=== PATIENT | female | born 1935 | race Caucasian/White ===

== ENCOUNTER 2017-06-02 22:46 | Inpatient (IN) | payer OTHER ==
[~2017-06-02] VITALS: Ht 157.5 cm; Wt 61.0 kg
[~2017-06-02 22:46] MED LIST: ACET500 PO; Amlodipine Bes2.5 MG PO; DOK100 MG PO; DONE10 PO; LIDO5TP TOP; METO25 PO; MIRT15 PO; NAPR220 PO; Norco 5-325 Ta1 EACH PO; PANT40 PO; Toprol Xl25 MG PO
[2017-06-02 23:15] LABS: Calcium, Ionized (POC) 1.09 mmol/L (1.10-1.46); Chloride (POC) 109 mmol/L (98-108); Creatinine (POC) 1.1 mg/dL (0.6-1.0); Glucose (ISTAT POC) 185 mg/dL (70-99); Hemoglobin (POC) 7.1 g/dL (12.0-16.0); Potassium (POC) 3.5 mmol/L (3.5-5.5); Sodium (POC) 138 mmol/L (135-148); Total CO2 (POC) 15 mmol/L (21-32)
[2017-06-02 23:17] LABS: BASOPHILS ABSOLUTE AUTO 0.02 K/mm3 (0.00-0.23); BASOPHILS PERCENT AUTO 0 % (0-2); EOSINOPHILS ABSOLUTE AUTO 0.01 K/mm3 (0.00-0.68); EOSINOPHILS PERCENT AUTO 0 % (0-6); Hematocrit 21.1 % (33.0-51.0); IMMATURE GRAN ABSOLUTE AUTO 0.24 K/mm3 (0.00-0.10); IMMATURE GRAN PERCENT AUTO 2 % (0-1); LYMPHOCYTES ABSOLUTE AUTO 0.95 K/mm3 (0.84-5.20); LYMPHOCYTES PERCENT AUTO 6 % (21-46); MONOCYTES ABSOLUTE AUTO 1.36 K/mm3 (0.16-1.47); MONOCYTES PERCENT AUTO 9 % (4-13); Mean Corpuscular HGB 17.3 pg (26.0-34.0); Mean Corpuscular Volume 64 fL (80-100); Mean Platelet Volume 8.4 fL (9.1-12.4); NEUTROPHILS ABSOLUTE AUTO 13.49 K/mm3 (1.96-9.15); NEUTROPHILS PERCENT AUTO 84 % (41-73); NRBC ABSOLUTE 0.02 K/mm3 (0.00-0.02); NRBC Auto 0.1 /100 WBC (0.0-0.2); Platelet Count 531 K/mm3 (150-400); RDW Coefficient Variation 23.4 % (11.7-14.2); RDW Standard Deviation 51.8 fL (35.1-46.3); Red Blood Cell Count 3.29 M/mm3 (3.80-5.20); White Blood Cell Count 16.07 K/mm3 (4.00-11.30)
[2017-06-02 23:19] LABS: Hemoglobin 5.7 g/dL (11.5-16.0)
[2017-06-02 23:42] LABS: Alanine Aminotransfer (ALT/SGP 9 U/L (12-78); Albumin/Globulin Ratio 0.9 (0.8-1.8); Alk Phos 63 U/L (50-136); Anion Gap 16 mmol/L (6-16); Aspartate Aminotrans (AST/SGOT 11 U/L (12-37); Bilirubin, Total 0.3 mg/dL (0.1-1.0); Blood Urea Nitrogen 38 mg/dL (8-24); Bun/Creatinine Ratio 36.9 (12.0-20.0); CO2, Blood 15 mmol/L (21-32); Calcium, Blood 8.4 mg/dL (8.5-10.1); Chloride, Blood 109 mmol/L (98-108); Creatinine, Blood 1.03 mg/dL (0.40-1.00); Globulin, Blood 3.5 g/dL (2.2-4.0); Glomerular Filtration Rate 54 (60-); Glucose, Blood 185 mg/dL (70-99); Potassium, Blood 3.5 mmol/L (3.5-5.5); Sodium, Blood 140 mmol/L (136-145); Total Protein, Blood 6.5 g/dL (6.4-8.2); Troponin I <0.015 ng/mL (0.000-0.040)
[2017-06-03 00:14] LABS: Source, Urine Clean Catch
[2017-06-03 00:19] LABS: Bilirubin, Urine Neg (Neg); Blood, Urine 1+ (Neg); Glucose Qualitative, Urine Neg (Neg); Ketones, Urine Neg (Neg); Leukocyte Esterase, Urine Neg (Neg); Nitrite, Urine Neg (Neg); Protein, Urine Neg (Neg); Specific Gravity, Urine 1.015 (1.003-1.022); Urobilinogen, Urine NORM (Normal)
[2017-06-03 00:30] LABS: Appearance, Urine Clear (Clear); Color, Urine Yellow (P-Yellow)
[2017-06-03 00:32] LABS: Bacteria Mod /hpf; Hyaline Casts 0-2 /lpf (0-2); Mucus Light (0-Heavy); Red Blood Cells, Urine 0-2 /hpf (0-2); Squamous Epithelial Cells Rare /hpf (Few); White Blood Cells, Urine 0-2 /hpf (0-5)
[2017-06-03 00:36] LABS: Hemoglobin 5.3 g/dL (11.5-16.0); IMMATURE RETIC FRACTION 42.7 % (2.3-16.0); RETIC HGB EQUIVALENT 18.5 pg (28.20-36.60); RETICULOCYTE COUNT PERCENT 3.22 % (0.50-2.50)
[2017-06-03 00:42] LABS: Percent Saturation 2.4 % (15.0-50.0)
[2017-06-03 06:15] LABS: BASOPHILS ABSOLUTE AUTO 0.05 K/mm3 (0.00-0.23); BASOPHILS PERCENT AUTO 0 % (0-2); EOSINOPHILS ABSOLUTE AUTO 0.04 K/mm3 (0.00-0.68); EOSINOPHILS PERCENT AUTO 0 % (0-6); Hematocrit 28.5 % (33.0-51.0); Hemoglobin 8.6 g/dL (11.5-16.0); IMMATURE GRAN ABSOLUTE AUTO 0.18 K/mm3 (0.00-0.10); IMMATURE GRAN PERCENT AUTO 1 % (0-1); LYMPHOCYTES ABSOLUTE AUTO 1.44 K/mm3 (0.84-5.20); LYMPHOCYTES PERCENT AUTO 10 % (21-46); MONOCYTES ABSOLUTE AUTO 1.88 K/mm3 (0.16-1.47); MONOCYTES PERCENT AUTO 13 % (4-13); Mean Corpuscular HGB 21.4 pg (26.0-34.0); Mean Corpuscular HGB Conc 30.2 g/dL (31.5-36.5); Mean Platelet Volume 8.4 fL (9.1-12.4); NEUTROPHILS ABSOLUTE AUTO 11.08 K/mm3 (1.96-9.15); NEUTROPHILS PERCENT AUTO 76 % (41-73); NRBC ABSOLUTE 0.05 K/mm3 (0.00-0.02); NRBC Auto 0.3 /100 WBC (0.0-0.2); Platelet Count 381 K/mm3 (150-400); RDW Coefficient Variation 26.5 % (11.7-14.2); Red Blood Cell Count 4.02 M/mm3 (3.80-5.20); White Blood Cell Count 14.67 K/mm3 (4.00-11.30)
[2017-06-03 06:18] LABS: Mean Corpuscular Volume 71 fL (80-100)
[2017-06-03 06:38] LABS: Alanine Aminotransfer (ALT/SGP 10 U/L (12-78); Albumin, Blood 2.8 g/dL (3.4-5.0); Albumin/Globulin Ratio 0.8 (0.8-1.8); Alk Phos 56 U/L (50-136); Anion Gap 10 mmol/L (6-16); Aspartate Aminotrans (AST/SGOT 13 U/L (12-37); Bilirubin, Total 0.6 mg/dL (0.1-1.0); Blood Urea Nitrogen 32 mg/dL (8-24); Bun/Creatinine Ratio 34.6 (12.0-20.0); CO2, Blood 19 mmol/L (21-32); Calcium, Blood 8.2 mg/dL (8.5-10.1); Chloride, Blood 113 mmol/L (98-108); Creatinine, Blood 0.92 mg/dL (0.40-1.00); Globulin, Blood 3.4 g/dL (2.2-4.0); Glomerular Filtration Rate >60 (60-); Glucose, Blood 93 mg/dL (70-99); Potassium, Blood 3.9 mmol/L (3.5-5.5); Sodium, Blood 142 mmol/L (136-145); Total Protein, Blood 6.2 g/dL (6.4-8.2)
[2017-06-03 14:17] LABS: Hematocrit 26.6 % (33.0-51.0); Hemoglobin 8.2 g/dL (11.5-16.0)
[2017-06-04 00:56] LABS: BASOPHILS ABSOLUTE AUTO 0.03 K/mm3 (0.00-0.23); BASOPHILS PERCENT AUTO 0 % (0-2); EOSINOPHILS ABSOLUTE AUTO 0.13 K/mm3 (0.00-0.68); EOSINOPHILS PERCENT AUTO 1 % (0-6); Hematocrit 26.4 % (33.0-51.0); IMMATURE GRAN ABSOLUTE AUTO 0.13 K/mm3 (0.00-0.10); IMMATURE GRAN PERCENT AUTO 1 % (0-1); LYMPHOCYTES ABSOLUTE AUTO 1.15 K/mm3 (0.84-5.20); LYMPHOCYTES PERCENT AUTO 11 % (21-46); MONOCYTES ABSOLUTE AUTO 1.35 K/mm3 (0.16-1.47); MONOCYTES PERCENT AUTO 13 % (4-13); Mean Corpuscular HGB 21.5 pg (26.0-34.0); Mean Corpuscular HGB Conc 30.3 g/dL (31.5-36.5); Mean Corpuscular Volume 71 fL (80-100); NEUTROPHILS ABSOLUTE AUTO 7.53 K/mm3 (1.96-9.15); NEUTROPHILS PERCENT AUTO 73 % (41-73); NRBC ABSOLUTE 0.02 K/mm3 (0.00-0.02); NRBC Auto 0.2 /100 WBC (0.0-0.2); Platelet Count 332 K/mm3 (150-400); RDW Coefficient Variation 26.3 % (11.7-14.2); Red Blood Cell Count 3.72 M/mm3 (3.80-5.20); White Blood Cell Count 10.32 K/mm3 (4.00-11.30)
[2017-06-04 01:14] LABS: Albumin, Blood 2.6 g/dL (3.4-5.0); Anion Gap 9 mmol/L (6-16); Blood Urea Nitrogen 15 mg/dL (8-24); Bun/Creatinine Ratio 20.3 (12.0-20.0); CO2, Blood 20 mmol/L (21-32); Calcium, Blood 7.9 mg/dL (8.5-10.1); Chloride, Blood 111 mmol/L (98-108); Creatinine, Blood 0.74 mg/dL (0.40-1.00); Glomerular Filtration Rate >60 (60-); Glucose, Blood 87 mg/dL (70-99); Phosphorus, Blood 2.5 mg/dL (2.5-4.9); Potassium, Blood 3.7 mmol/L (3.5-5.5); Sodium, Blood 140 mmol/L (136-145)
[2017-06-05 05:10] LABS: BASOPHILS ABSOLUTE AUTO 0.02 K/mm3 (0.00-0.23); BASOPHILS PERCENT AUTO 0 % (0-2); EOSINOPHILS ABSOLUTE AUTO 0.18 K/mm3 (0.00-0.68); EOSINOPHILS PERCENT AUTO 2 % (0-6); Hematocrit 27.5 % (33.0-51.0); IMMATURE GRAN ABSOLUTE AUTO 0.16 K/mm3 (0.00-0.10); IMMATURE GRAN PERCENT AUTO 2 % (0-1); LYMPHOCYTES ABSOLUTE AUTO 1.09 K/mm3 (0.84-5.20); LYMPHOCYTES PERCENT AUTO 11 % (21-46); MONOCYTES ABSOLUTE AUTO 1.18 K/mm3 (0.16-1.47); MONOCYTES PERCENT AUTO 12 % (4-13); Mean Corpuscular HGB 21.5 pg (26.0-34.0); Mean Corpuscular HGB Conc 29.1 g/dL (31.5-36.5); Mean Platelet Volume 8.4 fL (9.1-12.4); NEUTROPHILS ABSOLUTE AUTO 7.22 K/mm3 (1.96-9.15); NEUTROPHILS PERCENT AUTO 73 % (41-73); NRBC ABSOLUTE 0.03 K/mm3 (0.00-0.02); NRBC Auto 0.3 /100 WBC (0.0-0.2); Platelet Count 317 K/mm3 (150-400); RDW Coefficient Variation 27.6 % (11.7-14.2); RDW Standard Deviation 69.5 fL (35.1-46.3); Red Blood Cell Count 3.72 M/mm3 (3.80-5.20); White Blood Cell Count 9.85 K/mm3 (4.00-11.30)
[2017-06-05 05:12] LABS: Mean Corpuscular Volume 74 fL (80-100)
[2017-06-05 05:40] LABS: Albumin, Blood 2.6 g/dL (3.4-5.0); Anion Gap 10 mmol/L (6-16); Blood Urea Nitrogen 11 mg/dL (8-24); Bun/Creatinine Ratio 14.4 (12.0-20.0); CO2, Blood 23 mmol/L (21-32); Chloride, Blood 109 mmol/L (98-108); Creatinine, Blood 0.77 mg/dL (0.40-1.00); Glomerular Filtration Rate >60 (60-); Glucose, Blood 88 mg/dL (70-99); Phosphorus, Blood 2.4 mg/dL (2.5-4.9); Potassium, Blood 3.4 mmol/L (3.5-5.5); Sodium, Blood 142 mmol/L (136-145)
[2017-06-06 05:00] LABS: Hematocrit 27.9 % (33.0-51.0); Hemoglobin 8.1 g/dL (11.5-16.0)
[2017-06-07 05:31] LABS: Hematocrit 30.5 % (33.0-51.0); Hemoglobin 8.9 g/dL (11.5-16.0)
[2017-06-07 06:03] LABS: Albumin, Blood 2.5 g/dL (3.4-5.0); Anion Gap 8 mmol/L (6-16); Blood Urea Nitrogen 9 mg/dL (8-24); Bun/Creatinine Ratio 13.2 (12.0-20.0); CO2, Blood 25 mmol/L (21-32); Calcium, Blood 8.5 mg/dL (8.5-10.1); Chloride, Blood 106 mmol/L (98-108); Creatinine, Blood 0.68 mg/dL (0.40-1.00); Glomerular Filtration Rate >60 (60-); Glucose, Blood 87 mg/dL (70-99); Phosphorus, Blood 3.3 mg/dL (2.5-4.9); Potassium, Blood 3.8 mmol/L (3.5-5.5); Sodium, Blood 139 mmol/L (136-145)
[2017-06-10 05:09] LABS: Hematocrit 31.3 % (33.0-51.0); Hemoglobin 9.3 g/dL (11.5-16.0)
[2017-06-10 05:27] LABS: Anion Gap 9 mmol/L (6-16); Blood Urea Nitrogen 18 mg/dL (8-24); CO2, Blood 23 mmol/L (21-32); Calcium, Blood 8.5 mg/dL (8.5-10.1); Chloride, Blood 107 mmol/L (98-108); Creatinine, Blood 0.75 mg/dL (0.40-1.00); Glomerular Filtration Rate >60 (60-); Glucose, Blood 87 mg/dL (70-99); Potassium, Blood 3.7 mmol/L (3.5-5.5); Sodium, Blood 139 mmol/L (136-145)
[2017-06-11] MEDS ORDERED: ACET325 PO (11:23)
[2017-06-11] MEDS ORDERED: TRAM50 PO (11:24)
[2017-06-11] MEDS ORDERED: LIDO700A20 TOP (11:24)
[2017-06-11] MEDS ORDERED: Ferrous Sulfat325 M2 PO (11:25)
[2017-06-20] MEDS ORDERED: Ultram50 MG PO (19:13)
== END 2017-06-11 13:00 | disposition home or self-care (01) | DRG 811 ==
LOC: ER 22:46 → ICUW 23:58 → MEDS 23:58 → ICUE 23:58 → MEDS 06-03 01:10 → ICUE 06-03 08:40 → MEDS 06-03 20:57
PROVIDERS: Emergency Medicine; Family Medicine; Internal Medicine
PROC: 30233N1 Transfusion of Nonautologous Red Blood Cells into Peripheral Vein, Percutaneous Approach (ICD-10-PCS; principal; 2017-06-02)
DX: D50.9 Iron deficiency anemia, unspecified (principal); J96.01 Acute respiratory failure with hypoxia; G93.40 Encephalopathy, unspecified; F03.90 Unspecified dementia, unspecified severity, without behavioral disturbance, psychotic disturbance, mood disturbance, and anxiety; E78.5 Hyperlipidemia, unspecified; M19.90 Unspecified osteoarthritis, unspecified site; K59.00 Constipation, unspecified; R26.9 Unspecified abnormalities of gait and mobility
CPT/HCPCS: 36415; 36430; 70450; 71046; 71100; 74176; 78452; 80047; 80048; 80053; 80069; 81001; 82607; 82728; 82746; 83540; 83550; 83605; 83690; 84484; 85014; 85018; 85025; 85045; 86850; 86900; 86901; 86923; 87040; 87086; 93005; 93010; 93017; 96361; 96374; 97110; 97116; 97162; 97167; 97530; 99285; A9500; G8978; G8979; G8980; G8987; G8988; G8989; J0280; J0696; J1630; J2405; J2785; J2916; J3010; J7030; J7040; J7060; P9016

== ENCOUNTER 2017-06-13 10:33 | Emergency (ER) | payer OTHER ==
[~2017-06-13] VITALS: Ht 162.6 cm; Wt 59.0 kg
[~2017-06-13 10:33] MED LIST changes: +ACET325 PO; +Ferrous Sulfat325 M2 PO; +LIDO700A20 TOP; +TRAM50 PO
[2017-06-13 11:16] LABS: BASOPHILS ABSOLUTE AUTO 0.04 K/mm3 (0.00-0.23); BASOPHILS PERCENT AUTO 1 % (0-2); EOSINOPHILS ABSOLUTE AUTO 0.21 K/mm3 (0.00-0.68); EOSINOPHILS PERCENT AUTO 4 % (0-6); Hemoglobin 10.8 g/dL (11.5-16.0); IMMATURE GRAN ABSOLUTE AUTO 0.09 K/mm3 (0.00-0.10); IMMATURE GRAN PERCENT AUTO 2 % (0-1); LYMPHOCYTES ABSOLUTE AUTO 1.07 K/mm3 (0.84-5.20); LYMPHOCYTES PERCENT AUTO 18 % (21-46); MONOCYTES ABSOLUTE AUTO 0.65 K/mm3 (0.16-1.47); MONOCYTES PERCENT AUTO 11 % (4-13); Mean Platelet Volume 8.6 fL (9.1-12.4); NEUTROPHILS ABSOLUTE AUTO 3.87 K/mm3 (1.96-9.15); NEUTROPHILS PERCENT AUTO 65 % (41-73); Platelet Count 542 K/mm3 (150-400); White Blood Cell Count 5.93 K/mm3 (4.00-11.30)
[2017-06-13 11:21] LABS: International Normalized Ratio 1.07; Prothrombin Time Results 11.2 Sec (9.7-11.5)
[2017-06-13 11:28] LABS: Alanine Aminotransfer (ALT/SGP 13 U/L (12-78); Albumin, Blood 2.8 g/dL (3.4-5.0); Albumin/Globulin Ratio 0.6 (0.8-1.8); Alk Phos 85 U/L (50-136); Anion Gap 11 mmol/L (6-16); Aspartate Aminotrans (AST/SGOT 16 U/L (12-37); Bilirubin, Total 0.3 mg/dL (0.1-1.0); Blood Urea Nitrogen 12 mg/dL (8-24); Bun/Creatinine Ratio 14.9 (12.0-20.0); CO2, Blood 21 mmol/L (21-32); Calcium, Blood 9.1 mg/dL (8.5-10.1); Chloride, Blood 106 mmol/L (98-108); Creatinine, Blood 0.81 mg/dL (0.40-1.00); Globulin, Blood 4.6 g/dL (2.2-4.0); Glomerular Filtration Rate >60 (60-); Glucose, Blood 95 mg/dL (70-99); Potassium, Blood 3.7 mmol/L (3.5-5.5); Sodium, Blood 138 mmol/L (136-145); Total Protein, Blood 7.4 g/dL (6.4-8.2); Troponin I <0.015 ng/mL (0.000-0.040)
[2017-06-13 11:42] LABS: Mean Corpuscular HGB 23.6 pg (26.0-34.0); Mean Corpuscular HGB Conc 29.1 g/dL (31.5-36.5); Mean Corpuscular Volume 81 fL (80-100); Red Blood Cell Count 4.58 M/mm3 (3.80-5.20)
[2017-06-13 11:59] LABS: Hematocrit 37.1 % (33.0-51.0)
[2017-06-13 12:56] LABS: U Amphetamine Screen Not Detected; U Barbituate Screen Not Detected; U Benzodiazapine Screen Not Detected; U Buprenorphine Screen Not Detected; U Cannabinoids Screen Not Detected; U Cocaine Screen Not Detected; U Methadone Screen Not Detected; U Methamphetamine Screen Not Detected; U Opiates Screen DETECTED; U Oxycodone Screen Not Detected; U Phencyclidine Screen Not Detected; U Propoxyphene Screen Not Detected
[2017-06-13] MEDS ORDERED: Zithromax250 MG PO (13:00)
[2017-06-20] MEDS ORDERED: Ultram50 MG PO (19:13)
== END 2017-06-13 14:50 | disposition home or self-care (01) ==
LOC: ER 10:33
PROVIDERS: Emergency Medicine
DX: R07.9 Chest pain, unspecified (principal); F03.90 Unspecified dementia, unspecified severity, without behavioral disturbance, psychotic disturbance, mood disturbance, and anxiety; I10 Essential (primary) hypertension; Z88.0 Allergy status to penicillin; Z87.891 Personal history of nicotine dependence; Z79.899 Other long term (current) drug therapy
CPT/HCPCS: 36415; 71046; 80053; 83880; 84443; 84484; 85025; 85610; 93005; 93010; 96374; 96375; 99283; J2405; J3010

== ENCOUNTER 2017-07-14 16:45 | Observation (INO) | payer OTHER ==
[~2017-07-14] VITALS: Ht 152.4 cm; Wt 57.8 kg
[~2017-07-14 16:45] MED LIST changes: +Ultram50 MG PO; +Zithromax250 MG PO
[2017-07-14] MEDS ORDERED: ONDA4ODT PO ×2 (17:13)
[2017-07-14 17:30] LABS: BASOPHILS ABSOLUTE AUTO 0.02 K/mm3 (0.00-0.23); BASOPHILS PERCENT AUTO 0 % (0-2); EOSINOPHILS ABSOLUTE AUTO 0.19 K/mm3 (0.00-0.68); EOSINOPHILS PERCENT AUTO 3 % (0-6); Hematocrit 36.3 % (33.0-51.0); Hemoglobin 11.5 g/dL (11.5-16.0); IMMATURE GRAN ABSOLUTE AUTO 0.07 K/mm3 (0.00-0.10); IMMATURE GRAN PERCENT AUTO 1 % (0-1); LYMPHOCYTES PERCENT AUTO 27 % (21-46); MONOCYTES ABSOLUTE AUTO 0.68 K/mm3 (0.16-1.47); MONOCYTES PERCENT AUTO 12 % (4-13); Mean Corpuscular HGB 27.3 pg (26.0-34.0); Mean Corpuscular HGB Conc 31.7 g/dL (31.5-36.5); Mean Corpuscular Volume 86 fL (80-100); Mean Platelet Volume 8.5 fL (9.1-12.4); NEUTROPHILS ABSOLUTE AUTO 3.19 K/mm3 (1.96-9.15); NEUTROPHILS PERCENT AUTO 57 % (41-73); Platelet Count 398 K/mm3 (150-400); RDW Coefficient Variation 30.5 % (11.7-14.2); RDW Standard Deviation 91.4 fL (35.1-46.3); Red Blood Cell Count 4.21 M/mm3 (3.80-5.20); White Blood Cell Count 5.65 K/mm3 (4.00-11.30)
[2017-07-14 17:45] LABS: Alanine Aminotransfer (ALT/SGP 14 U/L (12-78); Albumin/Globulin Ratio 0.9 (0.8-1.8); Alk Phos 89 U/L (50-136); Anion Gap 10 mmol/L (6-16); Aspartate Aminotrans (AST/SGOT 26 U/L (12-37); Bilirubin, Total 0.4 mg/dL (0.1-1.0); Blood Urea Nitrogen 15 mg/dL (8-24); Bun/Creatinine Ratio 23.8 (12.0-20.0); CO2, Blood 21 mmol/L (21-32); Calcium, Blood 8.7 mg/dL (8.5-10.1); Chloride, Blood 110 mmol/L (98-108); Creatinine, Blood 0.63 mg/dL (0.40-1.00); Globulin, Blood 3.4 g/dL (2.2-4.0); Glomerular Filtration Rate >60 (60-); Glucose, Blood 89 mg/dL (70-99); Potassium, Blood 3.6 mmol/L (3.5-5.5); Sodium, Blood 141 mmol/L (136-145); Total Protein, Blood 6.4 g/dL (6.4-8.2); Troponin I 0.037 ng/mL (0.000-0.040)
[2017-07-14 23:33] LABS: Creatine Kinase MB 2.6 ng/mL (0.0-3.6); Troponin I 0.048 ng/mL (0.000-0.040)
[2017-07-15 05:00] LABS: Hematocrit 33.4 % (33.0-51.0); Hemoglobin 10.6 g/dL (11.5-16.0); Mean Corpuscular HGB 27.2 pg (26.0-34.0); Mean Corpuscular HGB Conc 31.7 g/dL (31.5-36.5); Mean Corpuscular Volume 86 fL (80-100); Mean Platelet Volume 8.3 fL (9.1-12.4); Platelet Count 328 K/mm3 (150-400); RDW Coefficient Variation 29.8 % (11.7-14.2)
[2017-07-15 05:22] LABS: Anion Gap 11 mmol/L (6-16); Blood Urea Nitrogen 13 mg/dL (8-24); Bun/Creatinine Ratio 21.4 (12.0-20.0); CO2, Blood 19 mmol/L (21-32); CPK Creatine Kinase 44 U/L (26-193); Chloride, Blood 110 mmol/L (98-108); Creatinine, Blood 0.61 mg/dL (0.40-1.00); Glomerular Filtration Rate >60 (60-); Glucose, Blood 81 mg/dL (70-99); Potassium, Blood 3.3 mmol/L (3.5-5.5); Sodium, Blood 140 mmol/L (136-145)
[2017-07-15 05:23] LABS: Creatine Kinase MB 2.9 ng/mL (0.0-3.6); Creatine Kinase MB Index 6.6 (0.0-4.0); Troponin I 0.041 ng/mL (0.000-0.040)
[2017-07-15 07:16] LABS: Source, Urine Clean Catch
[2017-07-15 07:24] LABS: Bilirubin, Urine Neg (Neg); Blood, Urine 3+ (Neg); Glucose Qualitative, Urine Neg (Neg); Ketones, Urine 2+ (Neg); Leukocyte Esterase, Urine 1+ (Neg); Nitrite, Urine Neg (Neg); Protein, Urine 1+ (Neg); Urobilinogen, Urine NORM (Normal)
[2017-07-15 07:48] LABS: Appearance, Urine Clear (Clear); Color, Urine Yellow (P-Yellow)
[2017-07-15 07:51] LABS: Bacteria Mod /hpf; Squamous Epithelial Cells Few /hpf (Few)
[2017-07-15 09:54] LABS: CHOL/HDL RATIO 5.1; Cholesterol 144 mg/dL (50-200); HDL Cholesterol 28 mg/dL (>39); LDL/HDL RATIO 2.8; Low Density Lipoprotein Chol 78 mg/dL (0-110); Triglycerides 188 mg/dL (30-160); Very Low Density Lipoprot Chol 37 mg/dL (6-32)
[2017-07-16] MEDS ORDERED: ASPI81CH PO ×2 (14:58)
[2017-07-16] MEDS ORDERED: Ferrous Sulfat325 MG PO ×2 (14:59)
[2017-07-16] MEDS ORDERED: DOCU100 PO ×2 (14:59)
[2017-07-16] MEDS ORDERED: METO25 PO ×2 (15:00)
[2017-07-16] MEDS ORDERED: NITR.4SL SL ×2 (15:02)
[2017-07-16 16:39] LABS: Hemoglobin 10.7 g/dL (11.5-16.0); Mean Corpuscular HGB 27.4 pg (26.0-34.0); Mean Corpuscular HGB Conc 31.5 g/dL (31.5-36.5); Mean Corpuscular Volume 87 fL (80-100); Mean Platelet Volume 8.1 fL (9.1-12.4); Platelet Count 325 K/mm3 (150-400); RDW Coefficient Variation 29.8 % (11.7-14.2); White Blood Cell Count 6.53 K/mm3 (4.00-11.30)
[2017-07-16 16:56] LABS: Anion Gap 7 mmol/L (6-16); Blood Urea Nitrogen 15 mg/dL (8-24); Bun/Creatinine Ratio 19.7 (12.0-20.0); CO2, Blood 24 mmol/L (21-32); Calcium, Blood 8.6 mg/dL (8.5-10.1); Chloride, Blood 111 mmol/L (98-108); Creatinine, Blood 0.76 mg/dL (0.40-1.00); Glomerular Filtration Rate >60 (60-); Glucose, Blood 100 mg/dL (70-99); Potassium, Blood 3.9 mmol/L (3.5-5.5); Sodium, Blood 142 mmol/L (136-145)
[2017-07-17] MEDS ORDERED: LEVO750 PO ×2 (14:17)
[2017-07-21] MEDS ORDERED: CEFP200 PO (18:12)
== END 2017-07-17 16:18 | disposition home or self-care (01) ==
LOC: ER 16:45 → MEDS 16:46
PROVIDERS: Emergency Medicine; Internal Medicine; Nurse Practitioner Acute Care
DX: R07.9 Chest pain, unspecified (principal); N39.0 Urinary tract infection, site not specified; B95.2 Enterococcus as the cause of diseases classified elsewhere; E78.5 Hyperlipidemia, unspecified; M19.90 Unspecified osteoarthritis, unspecified site; F03.90 Unspecified dementia, unspecified severity, without behavioral disturbance, psychotic disturbance, mood disturbance, and anxiety; I95.9 Hypotension, unspecified; D64.9 Anemia, unspecified; E87.6 Hypokalemia; Z88.0 Allergy status to penicillin; Z79.82 Long term (current) use of aspirin; Z79.899 Other long term (current) drug therapy
CPT/HCPCS: 36415; 71046; 78452; 80048; 80053; 80061; 81001; 82550; 82553; 83036; 84484; 85025; 85027; 87077; 87086; 87186; 93005; 93010; 93017; 96361; 96372; 96374; 97116; 97161; 97165; 97530; 97535; 99285; A9500; G0378; G8978; G8979; G8987; G8988; J0280; J1650; J2785; J3370; J7030; J7050

== ENCOUNTER 2017-07-18 12:37 | Emergency (ER) | payer OTHER ==
[~2017-07-18] VITALS: Ht 152.4 cm; Wt 59.0 kg
[~2017-07-18 12:37] MED LIST changes: +ASPI81CH PO; +DOCU100 PO; +Ferrous Sulfat325 MG PO; +LEVO750 PO; +NITR.4SL SL; +ONDA4ODT PO
[2017-07-21] MEDS ORDERED: CEFP200 PO (18:12)
== END 2017-07-18 15:17 | disposition home or self-care (01) ==
LOC: ER 12:37
DX: R07.89 Other chest pain (principal); I10 Essential (primary) hypertension; F03.90 Unspecified dementia, unspecified severity, without behavioral disturbance, psychotic disturbance, mood disturbance, and anxiety; Z88.0 Allergy status to penicillin; Z79.899 Other long term (current) drug therapy; Z79.82 Long term (current) use of aspirin; Z87.891 Personal history of nicotine dependence
CPT/HCPCS: 36415; 84484; 93005; 93010; 99283

== ENCOUNTER 2017-07-21 21:42 | Emergency (ER) | payer OTHER ==
[~2017-07-21] VITALS: Ht 152.4 cm; Wt 56.7 kg
[~2017-07-21 21:42] MED LIST changes: +CEFP200 PO
== END 2017-07-22 00:50 | disposition left against medical advice (07) ==
LOC: ER 21:42
DX: Z53.21 Procedure and treatment not carried out due to patient leaving prior to being seen by health care provider (principal)

== ENCOUNTER 2017-07-22 11:39 | Emergency (ER) | payer OTHER ==
[~2017-07-22] VITALS: Ht 152.4 cm; Wt 65.8 kg
== END 2017-07-22 13:15 | disposition home or self-care (01) ==
LOC: ER 11:39
DX: R07.89 Other chest pain (principal); R41.3 Other amnesia; Z88.0 Allergy status to penicillin; Z79.899 Other long term (current) drug therapy; Z79.82 Long term (current) use of aspirin; Z79.2 Long term (current) use of antibiotics; I10 Essential (primary) hypertension; Z87.891 Personal history of nicotine dependence
CPT/HCPCS: 36415; 84484; 93005; 93010; 99283

== ENCOUNTER 2017-09-07 18:25 | Emergency (ER) | payer OTHER ==
[~2017-09-07] VITALS: Ht 154.9 cm; Wt 49.9 kg
[2017-09-07 19:21] LABS: BASOPHILS ABSOLUTE AUTO 0.01 K/mm3 (0.00-0.23); BASOPHILS PERCENT AUTO 0 % (0-2); EOSINOPHILS ABSOLUTE AUTO 0.02 K/mm3 (0.00-0.68); EOSINOPHILS PERCENT AUTO 0 % (0-6); Hematocrit 22.7 % (33.0-51.0); Hemoglobin 7.3 g/dL (11.5-16.0); IMMATURE GRAN ABSOLUTE AUTO 0.11 K/mm3 (0.00-0.10); IMMATURE GRAN PERCENT AUTO 2 % (0-1); LYMPHOCYTES ABSOLUTE AUTO 0.46 K/mm3 (0.84-5.20); LYMPHOCYTES PERCENT AUTO 6 % (21-46); MONOCYTES ABSOLUTE AUTO 0.58 K/mm3 (0.16-1.47); MONOCYTES PERCENT AUTO 8 % (4-13); Mean Corpuscular HGB 32.7 pg (26.0-34.0); Mean Corpuscular HGB Conc 32.2 g/dL (31.5-36.5); Mean Corpuscular Volume 102 fL (80-100); Mean Platelet Volume 9.5 fL (9.1-12.4); NEUTROPHILS ABSOLUTE AUTO 6.27 K/mm3 (1.96-9.15); NEUTROPHILS PERCENT AUTO 84 % (41-73); Platelet Count 280 K/mm3 (150-400); RDW Coefficient Variation 20.3 % (11.7-14.2); RDW Standard Deviation 74.3 fL (35.1-46.3); Red Blood Cell Count 2.23 M/mm3 (3.80-5.20); White Blood Cell Count 7.45 K/mm3 (4.00-11.30)
[2017-09-07 19:52] LABS: Alanine Aminotransfer (ALT/SGP 11 U/L (12-78); Albumin, Blood 2.6 g/dL (3.4-5.0); Albumin/Globulin Ratio 0.8 (0.8-1.8); Alk Phos 71 U/L (50-136); Anion Gap 14 mmol/L (6-16); Aspartate Aminotrans (AST/SGOT 31 U/L (12-37); Bilirubin, Total 0.4 mg/dL (0.1-1.0); Blood Urea Nitrogen 26 mg/dL (8-24); Bun/Creatinine Ratio 33.1 (12.0-20.0); CO2, Blood 19 mmol/L (21-32); Chloride, Blood 110 mmol/L (98-108); Creatinine, Blood 0.79 mg/dL (0.40-1.00); Globulin, Blood 3.2 g/dL (2.2-4.0); Glomerular Filtration Rate >60 (60-); Glucose, Blood 99 mg/dL (70-99); Potassium, Blood 3.9 mmol/L (3.5-5.5); Sodium, Blood 143 mmol/L (136-145); Total Protein, Blood 5.8 g/dL (6.4-8.2)
[2017-09-07 20:41] LABS: International Normalized Ratio 1.05; Prothrombin Time Results 10.8 Sec (9.7-11.5)
== END 2017-09-07 22:25 | disposition short-term general hospital (02) ==
LOC: ER 18:25
PROVIDERS: Emergency Medicine
DX: D62 Acute posthemorrhagic anemia (principal); K92.1 Melena; F03.90 Unspecified dementia, unspecified severity, without behavioral disturbance, psychotic disturbance, mood disturbance, and anxiety; I10 Essential (primary) hypertension; Z88.0 Allergy status to penicillin; Z79.899 Other long term (current) drug therapy; Z79.82 Long term (current) use of aspirin; Z87.891 Personal history of nicotine dependence
CPT/HCPCS: 36430; 71046; 80053; 82272; 85025; 85610; 86850; 86900; 86901; 86923; 93005; 93010; 96374; 99285; C9113; P9016

== ENCOUNTER 2017-11-07 20:07 | Emergency (ER) | payer OTHER ==
[~2017-11-07] VITALS: Ht 152.4 cm; Wt 59.0 kg
[2017-11-07] MEDS ORDERED: PANT40 PO (20:36)
[2017-11-07 20:38] LABS: BASOPHILS ABSOLUTE AUTO 0.01 K/mm3 (0.00-0.23); BASOPHILS PERCENT AUTO 0 % (0-2); EOSINOPHILS ABSOLUTE AUTO 0.13 K/mm3 (0.00-0.68); EOSINOPHILS PERCENT AUTO 2 % (0-6); Hematocrit 32.4 % (33.0-51.0); Hemoglobin 9.9 g/dL (11.5-16.0); IMMATURE GRAN ABSOLUTE AUTO 0.03 K/mm3 (0.00-0.10); IMMATURE GRAN PERCENT AUTO 0 % (0-1); LYMPHOCYTES ABSOLUTE AUTO 1.25 K/mm3 (0.84-5.20); LYMPHOCYTES PERCENT AUTO 18 % (21-46); MONOCYTES ABSOLUTE AUTO 0.76 K/mm3 (0.16-1.47); MONOCYTES PERCENT AUTO 11 % (4-13); Mean Corpuscular HGB Conc 30.6 g/dL (31.5-36.5); Mean Corpuscular Volume 89 fL (80-100); Mean Platelet Volume 8.5 fL (9.1-12.4); NEUTROPHILS PERCENT AUTO 68 % (41-73); Platelet Count 376 K/mm3 (150-400); RDW Coefficient Variation 17.6 % (11.7-14.2); RDW Standard Deviation 56.7 fL (35.1-46.3); Red Blood Cell Count 3.66 M/mm3 (3.80-5.20); White Blood Cell Count 6.88 K/mm3 (4.00-11.30)
[2017-11-07 21:04] LABS: Alanine Aminotransfer (ALT/SGP 14 U/L (12-78); Albumin, Blood 3.1 g/dL (3.4-5.0); Albumin/Globulin Ratio 0.9 (0.8-1.8); Alk Phos 93 U/L (50-136); Anion Gap 9 mmol/L (6-16); Aspartate Aminotrans (AST/SGOT 15 U/L (12-37); Bilirubin, Total 0.2 mg/dL (0.1-1.0); Blood Urea Nitrogen 13 mg/dL (8-24); Bun/Creatinine Ratio 15.2 (12.0-20.0); CO2, Blood 24 mmol/L (21-32); Calcium, Blood 8.9 mg/dL (8.5-10.1); Chloride, Blood 109 mmol/L (98-108); Creatinine, Blood 0.86 mg/dL (0.40-1.00); Globulin, Blood 3.5 g/dL (2.2-4.0); Glomerular Filtration Rate >60 (60-); Glucose, Blood 94 mg/dL (70-99); Potassium, Blood 3.6 mmol/L (3.5-5.5); Sodium, Blood 142 mmol/L (136-145); Total Protein, Blood 6.6 g/dL (6.4-8.2)
[2017-11-07 22:36] LABS: Source, Urine Clean Catch
[2017-11-07 22:38] LABS: Bilirubin, Urine Neg (Neg); Blood, Urine Neg (Neg); Glucose Qualitative, Urine Neg (Neg); Ketones, Urine Neg (Neg); Leukocyte Esterase, Urine 1+ (Neg); Nitrite, Urine Neg (Neg); Protein, Urine Neg (Neg); Specific Gravity, Urine 1.015 (1.003-1.022); Urobilinogen, Urine NORM (Normal)
[2017-11-07 22:49] LABS: Appearance, Urine Clear (Clear); Color, Urine Yellow (P-Yellow)
[2017-11-07 22:51] LABS: Bacteria Few /hpf; Mucus Light (0-Heavy); Red Blood Cells, Urine Not Seen /hpf (0-2); Squamous Epithelial Cells Few /hpf (Few)
[2017-11-07 22:54] LABS: Troponin I <0.015 ng/mL (0.000-0.040)
[2017-11-07] MEDS ORDERED: NITR100CA PO (23:53)
== END 2017-11-08 00:11 | disposition home or self-care (01) ==
LOC: ER 20:07
PROVIDERS: Emergency Medicine
DX: N39.0 Urinary tract infection, site not specified (principal); D64.9 Anemia, unspecified; Z88.0 Allergy status to penicillin; Z79.899 Other long term (current) drug therapy; I10 Essential (primary) hypertension; Z87.891 Personal history of nicotine dependence
CPT/HCPCS: 36415; 71046; 80053; 81001; 82272; 84484; 85025; 87086; 93005; 93010; 96360; 99284-25; J7030

== ENCOUNTER 2018-05-18 08:48 | Emergency (ER) | payer OTHER ==
[~2018-05-18] VITALS: Ht 157.5 cm; Wt 61.2 kg
[~2018-05-18 08:48] MED LIST changes: +NITR100CA PO
[2018-05-18 09:24] LABS: BASOPHILS ABSOLUTE AUTO 0.02 K/mm3 (0.00-0.23); BASOPHILS PERCENT AUTO 0 % (0-2); EOSINOPHILS ABSOLUTE AUTO 0.16 K/mm3 (0.00-0.68); EOSINOPHILS PERCENT AUTO 3 % (0-6); Hematocrit 36.3 % (33.0-51.0); IMMATURE GRAN ABSOLUTE AUTO 0.05 K/mm3 (0.00-0.10); IMMATURE GRAN PERCENT AUTO 1 % (0-1); LYMPHOCYTES ABSOLUTE AUTO 1.12 K/mm3 (0.84-5.20); LYMPHOCYTES PERCENT AUTO 19 % (21-46); MONOCYTES ABSOLUTE AUTO 0.68 K/mm3 (0.16-1.47); MONOCYTES PERCENT AUTO 11 % (4-13); Mean Corpuscular HGB 25.8 pg (26.0-34.0); Mean Corpuscular HGB Conc 30.3 g/dL (31.5-36.5); Mean Corpuscular Volume 85 fL (80-100); NEUTROPHILS ABSOLUTE AUTO 4.04 K/mm3 (1.96-9.15); NEUTROPHILS PERCENT AUTO 67 % (41-73); Platelet Count 276 K/mm3 (150-400); RDW Coefficient Variation 17.7 % (11.7-14.2); RDW Standard Deviation 55.4 fL (35.1-46.3); Red Blood Cell Count 4.26 M/mm3 (3.80-5.20); White Blood Cell Count 6.07 K/mm3 (4.00-11.30)
[2018-05-18 09:41] LABS: Alanine Aminotransfer (ALT/SGP 14 U/L (12-78); Albumin, Blood 3.1 g/dL (3.4-5.0); Albumin/Globulin Ratio 0.8 (0.8-1.8); Alk Phos 94 U/L (50-136); Anion Gap 9 mmol/L (6-16); Aspartate Aminotrans (AST/SGOT 17 U/L (12-37); Bilirubin, Total 0.3 mg/dL (0.1-1.0); Blood Urea Nitrogen 25 mg/dL (8-24); CO2, Blood 21 mmol/L (21-32); Calcium, Blood 8.6 mg/dL (8.5-10.1); Chloride, Blood 112 mmol/L (98-108); Creatinine, Blood 0.86 mg/dL (0.40-1.00); Globulin, Blood 3.9 g/dL (2.2-4.0); Glomerular Filtration Rate >60 (60-); Glucose, Blood 126 mg/dL (70-99); Potassium, Blood 3.9 mmol/L (3.5-5.5); Sodium, Blood 142 mmol/L (136-145); Troponin I <0.015 ng/mL (0.000-0.040)
[2018-05-18] MEDS ORDERED: QUET25 PO (09:46)
[2018-05-18] MEDS ORDERED: Milk Of Ma400 MG/5 M PO (09:48)
[2018-05-18] MEDS ORDERED: CYAN500 PO (09:48)
[2018-05-18] MEDS ORDERED: Dulcolax5 MG PO (09:48)
[2018-05-18] MEDS ORDERED: NITR.4SL SL (09:49)
[2018-05-18 12:04] LABS: Source, Urine Clean Catch
[2018-05-18 12:11] LABS: Bilirubin, Urine Neg (Neg); Blood, Urine 3+ (Neg); Glucose Qualitative, Urine Neg (Neg); Ketones, Urine Neg (Neg); Leukocyte Esterase, Urine 1+ (Neg); Nitrite, Urine Neg (Neg); Protein, Urine 2+ (Neg); Specific Gravity, Urine 1.015 (1.003-1.022); Urobilinogen, Urine NORM (Normal)
[2018-05-18 12:23] LABS: Appearance, Urine Hazy (Clear); Color, Urine Yellow (P-Yellow)
[2018-05-18 12:24] LABS: Bacteria Rare /hpf; Mucus Mod (0-Heavy); Squamous Epithelial Cells Few /hpf (Few)
== END 2018-05-18 15:06 | disposition home or self-care (01) ==
LOC: ER 08:48
PROVIDERS: Physician Assistant
DX: R55 Syncope and collapse (principal); Z88.0 Allergy status to penicillin; Z79.899 Other long term (current) drug therapy; I10 Essential (primary) hypertension; F03.90 Unspecified dementia, unspecified severity, without behavioral disturbance, psychotic disturbance, mood disturbance, and anxiety; Z87.891 Personal history of nicotine dependence
CPT/HCPCS: 36415; 70450; 71046; 80053; 81001; 84484; 85025; 87086; 93005; 93010; 96374; 96375; 96376; 99285-25

== ENCOUNTER 2018-08-17 22:05 | Emergency (ER) | payer OTHER ==
[~2018-08-17] VITALS: Ht 157.5 cm; Wt 63.5 kg
[~2018-08-17 22:05] MED LIST changes: +CYAN500 PO; +Dulcolax5 MG PO; +Milk Of Ma400 MG/5 M PO; +QUET25 PO
[2018-08-18 01:03] LABS: BASOPHILS ABSOLUTE AUTO 0.02 K/mm3 (0.00-0.23); BASOPHILS PERCENT AUTO 0 % (0-2); EOSINOPHILS ABSOLUTE AUTO 0.21 K/mm3 (0.00-0.68); EOSINOPHILS PERCENT AUTO 3 % (0-6); Hematocrit 34.6 % (33.0-51.0); Hemoglobin 10.6 g/dL (11.5-16.0); IMMATURE GRAN ABSOLUTE AUTO 0.04 K/mm3 (0.00-0.10); IMMATURE GRAN PERCENT AUTO 1 % (0-1); LYMPHOCYTES ABSOLUTE AUTO 1.37 K/mm3 (0.84-5.20); LYMPHOCYTES PERCENT AUTO 18 % (21-46); MONOCYTES ABSOLUTE AUTO 1.07 K/mm3 (0.16-1.47); MONOCYTES PERCENT AUTO 14 % (4-13); Mean Corpuscular HGB 25.5 pg (26.0-34.0); Mean Corpuscular HGB Conc 30.6 g/dL (31.5-36.5); Mean Corpuscular Volume 83 fL (80-100); Mean Platelet Volume 9.1 fL (9.1-12.4); NEUTROPHILS ABSOLUTE AUTO 4.91 K/mm3 (1.96-9.15); NEUTROPHILS PERCENT AUTO 64 % (41-73); Platelet Count 289 K/mm3 (150-400); RDW Coefficient Variation 17.2 % (11.7-14.2); RDW Standard Deviation 52.9 fL (35.1-46.3); Red Blood Cell Count 4.16 M/mm3 (3.80-5.20); White Blood Cell Count 7.62 K/mm3 (4.00-11.30)
[2018-08-18 01:19] LABS: International Normalized Ratio 0.94
[2018-08-18 01:21] LABS: Alanine Aminotransfer (ALT/SGP 17 U/L (12-78); Albumin, Blood 3.1 g/dL (3.4-5.0); Albumin/Globulin Ratio 0.9 (0.8-1.8); Alk Phos 101 U/L (50-136); Anion Gap 5 mmol/L (6-16); Aspartate Aminotrans (AST/SGOT 12 U/L (12-37); Bilirubin, Total 0.2 mg/dL (0.1-1.0); Blood Urea Nitrogen 18 mg/dL (8-24); Bun/Creatinine Ratio 21.2 (12.0-20.0); CO2, Blood 26 mmol/L (21-32); Calcium, Blood 8.8 mg/dL (8.5-10.1); Chloride, Blood 111 mmol/L (98-108); Creatinine, Blood 0.85 mg/dL (0.40-1.00); Globulin, Blood 3.6 g/dL (2.2-4.0); Glomerular Filtration Rate >60 (60-); Glucose, Blood 94 mg/dL (70-99); Sodium, Blood 142 mmol/L (136-145); Total Protein, Blood 6.7 g/dL (6.4-8.2)
== END 2018-08-18 03:47 | disposition home or self-care (01) ==
LOC: ER 22:05
PROVIDERS: Emergency Medicine
DX: R07.89 Other chest pain (principal); R91.8 Other nonspecific abnormal finding of lung field; R10.9 Unspecified abdominal pain; Z88.0 Allergy status to penicillin; I10 Essential (primary) hypertension; Z87.891 Personal history of nicotine dependence
CPT/HCPCS: 36415; 71101; 71275; 74175; 80053; 85025; 85610; 85730; 93005; 93010; 96372-59; 99284-25; J1885; J3010; Q9967

== ENCOUNTER → 2018-09-03 | Outpatient (CLI) | payer OTHER ==
[2018-09-04 11:43] LABS: Bilirubin, Urine Neg (Neg); Blood, Urine 1+ (Neg); Glucose Qualitative, Urine Neg (Neg); Ketones, Urine Neg (Neg); Leukocyte Esterase, Urine 1+ (Neg); Nitrite, Urine Neg (Neg); Protein, Urine 1+ (Neg); Urobilinogen, Urine NORM (Normal)
[2018-09-04 11:56] LABS: Appearance, Urine Clear (Clear); Color, Urine Yellow (P-Yellow)
[2018-09-04 11:59] LABS: Bacteria Rare /hpf; Red Blood Cells, Urine 0-2 /hpf (0-2); Squamous Epithelial Cells Rare /hpf (Few)
== END | disposition home or self-care (01) ==
LOC: LAB 11:27 → LAB SHORT 11:27
PROVIDERS: Family Medicine
DX: Z79.01 Long term (current) use of anticoagulants (principal); Z51.81 Encounter for therapeutic drug level monitoring; N39.0 Urinary tract infection, site not specified
CPT/HCPCS: 81001

== ENCOUNTER 2018-10-12 14:27 | Emergency (ER) | payer OTHER ==
[~2018-10-12] VITALS: Ht 152.4 cm; Wt 63.5 kg
== END 2018-10-12 17:36 | disposition home or self-care (01) ==
LOC: ER 14:27
DX: F41.0 Panic disorder [episodic paroxysmal anxiety] (principal); Z88.0 Allergy status to penicillin; Z79.899 Other long term (current) drug therapy; I10 Essential (primary) hypertension; F03.90 Unspecified dementia, unspecified severity, without behavioral disturbance, psychotic disturbance, mood disturbance, and anxiety; Z87.891 Personal history of nicotine dependence
CPT/HCPCS: 99283

== ENCOUNTER 2019-03-05 12:14 | Emergency (ER) | payer OTHER ==
[~2019-03-05] VITALS: Ht 160 cm; Wt 63.5 kg
[2019-03-05] MEDS ORDERED: DOCU100 PO (12:45)
[2019-03-05] MEDS ORDERED: PANT40 PO (12:45)
[2019-03-05] MEDS ORDERED: SERT25 PO (12:46)
[2019-03-05] MEDS ORDERED: Vitamin B-12100 MCG (12:47)
[2019-03-05] MEDS ORDERED: ACET500 PO (12:48)
[2019-03-05] MEDS ORDERED: QUET25 PO (12:48)
[2019-03-05] MEDS ORDERED: ACETAMINOPHEN500 MG PO (13:22)
== END 2019-03-05 14:37 | disposition home or self-care (01) ==
LOC: ER 12:14
DX: S09.90XA Unspecified injury of head, initial encounter (principal); I10 Essential (primary) hypertension; F03.90 Unspecified dementia, unspecified severity, without behavioral disturbance, psychotic disturbance, mood disturbance, and anxiety; Z88.0 Allergy status to penicillin; Z79.899 Other long term (current) drug therapy; Z87.891 Personal history of nicotine dependence; W18.30XA Fall on same level, unspecified, initial encounter
CPT/HCPCS: 99283

== ENCOUNTER 2019-04-19 10:47 | Emergency (ER) | payer OTHER ==
[~2019-04-19] VITALS: Ht 157.5 cm; Wt 63.5 kg
[~2019-04-19 10:47] MED LIST changes: +ACETAMINOPHEN500 MG PO; +SERT25 PO; +Vitamin B-12100 MCG PO
[2019-04-19] MEDS ORDERED: TRAZ50 PO ×2 (11:05→14:16)
[2019-04-19] MEDS ORDERED: ONDA4ODT (11:07)
[2019-04-19] MEDS ORDERED: ACET325 PO ×2 (11:08→11:20)
[2019-04-19] MEDS ORDERED: ACET500 PO (11:20)
[2019-04-19 12:14] LABS: Source, Urine Catheter
[2019-04-19 12:19] LABS: BASOPHILS ABSOLUTE AUTO 0.03 K/mm3 (0.00-0.23); BASOPHILS PERCENT AUTO 0 % (0-2); EOSINOPHILS ABSOLUTE AUTO 0.12 K/mm3 (0.00-0.68); EOSINOPHILS PERCENT AUTO 2 % (0-6); Hematocrit 35.3 % (33.0-51.0); Hemoglobin 10.8 g/dL (11.5-16.0); IMMATURE GRAN ABSOLUTE AUTO 0.04 K/mm3 (0.00-0.10); IMMATURE GRAN PERCENT AUTO 1 % (0-1); LYMPHOCYTES ABSOLUTE AUTO 1.17 K/mm3 (0.84-5.20); LYMPHOCYTES PERCENT AUTO 17 % (21-46); MONOCYTES ABSOLUTE AUTO 0.81 K/mm3 (0.16-1.47); MONOCYTES PERCENT AUTO 12 % (4-13); Mean Corpuscular HGB 27.1 pg (26.0-34.0); Mean Corpuscular HGB Conc 30.6 g/dL (31.5-36.5); Mean Corpuscular Volume 89 fL (80-100); NEUTROPHILS ABSOLUTE AUTO 4.82 K/mm3 (1.96-9.15); NEUTROPHILS PERCENT AUTO 69 % (41-73); Platelet Count 271 K/mm3 (150-400); RDW Coefficient Variation 17.2 % (11.7-14.2); RDW Standard Deviation 55.5 fL (35.1-46.3); Red Blood Cell Count 3.98 M/mm3 (3.80-5.20); White Blood Cell Count 6.99 K/mm3 (4.00-11.30)
[2019-04-19 12:22] LABS: Anion Gap 7 mmol/L (6-16); Blood Urea Nitrogen 15 mg/dL (8-24); Bun/Creatinine Ratio 18.4 (12.0-20.0); CO2, Blood 23 mmol/L (21-32); Calcium, Blood 8.9 mg/dL (8.5-10.1); Chloride, Blood 111 mmol/L (98-108); Creatinine, Blood 0.82 mg/dL (0.40-1.00); Glomerular Filtration Rate >60 (60-); Glucose, Blood 83 mg/dL (70-99); Potassium, Blood 4.1 mmol/L (3.5-5.5); Sodium, Blood 141 mmol/L (136-145)
[2019-04-19 12:24] LABS: Bilirubin, Urine Neg (Neg); Blood, Urine 3+ (Neg); Glucose Qualitative, Urine Neg (Neg); Ketones, Urine Neg (Neg); Leukocyte Esterase, Urine Neg (Neg); Nitrite, Urine Neg (Neg); Protein, Urine Neg (Neg); Urobilinogen, Urine NORM (Normal)
[2019-04-19 12:42] LABS: Appearance, Urine Clear (Clear); Color, Urine Yellow (P-Yellow)
[2019-04-19 12:44] LABS: Bacteria Rare /hpf; Mucus Mod (0-Heavy); Squamous Epithelial Cells Rare /hpf (Few); White Blood Cells, Urine 0-2 /hpf (0-5)
[2019-04-19] MEDS ORDERED: QUET25 PO (14:16)
== END 2019-04-19 15:29 | disposition home or self-care (01) ==
LOC: ER 10:47
PROVIDERS: Emergency Medicine
DX: F03.91 Unspecified dementia, unspecified severity, with behavioral disturbance (principal); Z88.0 Allergy status to penicillin; Z79.899 Other long term (current) drug therapy; I10 Essential (primary) hypertension; Z87.891 Personal history of nicotine dependence
CPT/HCPCS: 36415; 80048; 81001; 85025; 99285

== ENCOUNTER 2019-07-15 17:02 | Emergency (ER) | payer OTHER ==
[~2019-07-15] VITALS: Ht 157.5 cm; Wt 63.5 kg
[~2019-07-15 17:02] MED LIST changes: +ONDA4ODT; +TRAZ50 PO; +VITAMIN B-122000 MC1 PO; -Vitamin B-12100 MCG PO
[2019-07-15] MEDS ORDERED: Seroquel Xr50 MG PO (17:29)
[2019-07-15 18:08] LABS: Source, Urine Clean Catch
[2019-07-15 18:13] LABS: Bilirubin, Urine Neg (Neg); Blood, Urine 2+ (Neg); Glucose Qualitative, Urine Neg (Neg); Ketones, Urine Neg (Neg); Leukocyte Esterase, Urine Neg (Neg); Nitrite, Urine Neg (Neg); Protein, Urine Neg (Neg); Urobilinogen, Urine NORM (Normal); pH, Urine 6.5 (5.0-8.0)
[2019-07-15 18:19] LABS: Appearance, Urine Clear (Clear); Color, Urine Yellow (P-Yellow)
[2019-07-15 18:27] LABS: Bacteria Few /hpf; Squamous Epithelial Cells Few /hpf (Few); White Blood Cells, Urine 0-2 /hpf (0-5)
== END 2019-07-15 19:45 | disposition home or self-care (01) ==
LOC: ER 17:02
PROVIDERS: Emergency Medicine
DX: R45.6 Violent behavior (principal); F03.90 Unspecified dementia, unspecified severity, without behavioral disturbance, psychotic disturbance, mood disturbance, and anxiety; I10 Essential (primary) hypertension; E78.5 Hyperlipidemia, unspecified; Z88.0 Allergy status to penicillin; Z79.899 Other long term (current) drug therapy; Z87.891 Personal history of nicotine dependence
CPT/HCPCS: 81001; 99284

== ENCOUNTER 2019-09-18 11:34 | Observation (INO) | payer OTHER ==
[~2019-09-18] VITALS: Ht 154.9 cm; Wt 51.4 kg
[~2019-09-18 11:34] MED LIST changes: -ONDA4ODT; -SERT25 PO; -VITAMIN B-122000 MC1 PO
[2019-09-18 11:55] LABS: BASOPHILS ABSOLUTE AUTO 0.03 K/mm3 (0.00-0.23); BASOPHILS PERCENT AUTO 0 % (0-2); EOSINOPHILS ABSOLUTE AUTO 0.09 K/mm3 (0.00-0.68); EOSINOPHILS PERCENT AUTO 1 % (0-6); Hematocrit 33.6 % (33.0-51.0); Hemoglobin 10.2 g/dL (11.5-16.0); IMMATURE GRAN ABSOLUTE AUTO 0.07 K/mm3 (0.00-0.10); IMMATURE GRAN PERCENT AUTO 1 % (0-1); LYMPHOCYTES ABSOLUTE AUTO 0.97 K/mm3 (0.84-5.20); LYMPHOCYTES PERCENT AUTO 11 % (21-46); MONOCYTES ABSOLUTE AUTO 1.07 K/mm3 (0.16-1.47); MONOCYTES PERCENT AUTO 13 % (4-13); Mean Corpuscular HGB 26.6 pg (26.0-34.0); Mean Corpuscular HGB Conc 30.4 g/dL (31.5-36.5); Mean Corpuscular Volume 88 fL (80-100); Mean Platelet Volume 8.5 fL (9.1-12.4); NEUTROPHILS ABSOLUTE AUTO 6.31 K/mm3 (1.96-9.15); NEUTROPHILS PERCENT AUTO 74 % (41-73); Platelet Count 351 K/mm3 (150-400); RDW Coefficient Variation 15.6 % (11.7-14.2); RDW Standard Deviation 49.8 fL (35.1-46.3); Red Blood Cell Count 3.83 M/mm3 (3.80-5.20); White Blood Cell Count 8.54 K/mm3 (4.00-11.30)
[2019-09-18 12:06] LABS: International Normalized Ratio 1.07; Prothrombin Time Results 11.4 Sec (9.7-11.5)
[2019-09-18 12:14] LABS: Alanine Aminotransfer (ALT/SGP 8 U/L (12-78); Albumin, Blood 2.6 g/dL (3.4-5.0); Albumin/Globulin Ratio 0.6 (0.8-1.8); Alk Phos 108 U/L (50-136); Anion Gap 10 mmol/L (6-16); Aspartate Aminotrans (AST/SGOT 20 U/L (12-37); Bilirubin, Total 0.3 mg/dL (0.1-1.0); Blood Urea Nitrogen 14 mg/dL (8-24); CO2, Blood 21 mmol/L (21-32); Calcium, Blood 8.9 mg/dL (8.5-10.1); Chloride, Blood 106 mmol/L (98-108); Creatinine, Blood 0.93 mg/dL (0.40-1.00); Globulin, Blood 4.3 g/dL (2.2-4.0); Glomerular Filtration Rate >60 (60-); Glucose, Blood 162 mg/dL (70-99); Potassium, Blood 3.2 mmol/L (3.5-5.5); Sodium, Blood 137 mmol/L (136-145); Total Protein, Blood 6.9 g/dL (6.4-8.2)
[2019-09-18] MEDS ORDERED: NITR.4SL SL (12:50)
[2019-09-18] MEDS ORDERED: DOCU100 PO (12:51)
[2019-09-18] MEDS ORDERED: PANT40 PO (12:51)
[2019-09-18] MEDS ORDERED: VITAMIN B-122000 MC1 PO (12:52)
[2019-09-18] MEDS ORDERED: SERT25 PO (12:52)
[2019-09-18] MEDS ORDERED: TRAZ50 PO (12:53)
[2019-09-18] MEDS ORDERED: ONDA4ODT SL (12:54)
[2019-09-18] MEDS ORDERED: ACET500 PO (12:55)
[2019-09-18] MEDS ORDERED: Seroquel Xr50 MG PO (12:55)
[2019-09-18] MEDS ORDERED: Capsaicin60 GM TOP (12:56)
[2019-09-18] MEDS ORDERED: ACET325 PO (12:57)
[2019-09-18] MEDS ORDERED: BISA10S PR (12:58)
[2019-09-18] MEDS ORDERED: MILK OF MA400 MG/51 PO (12:59)
[2019-09-18] MEDS ORDERED: TRAZODONE TOP (13:01)
[2019-09-18] MEDS ORDERED: [UNRECOGNIZED DRUG - OTHER] TOP (13:01)
--- NOTE | 2019-09-18 16:07 | NUR ---
SHIFT SUMMARY 1330 RECEIVED PT TO RM 340 VIA GURNEY FROM ER. SLIDE TX TO BED. PT ADMITTED FOR POSSIBLE CVA; FROM [facility]. PER REPORT FROM CHAITANYA YOST, PT NORMALLY INDEPENDENT AND VERBAL, DEVELOPING SLURRED SPEECH, R FACIAL DROOP, AND LEANING TO R SIDE, WHILE SITTING IN CHAIR. SYMPTOMS RESOLVING SOMEWHAT DURING TRANSPORT BY EMS. PT TO RM WITH SLURRED SPEECH, BUT NO OTHER NOTED DEFICITS. SOME SPEECH UNDERSTANDABLE, BUT AT TIMES PT STRUGGLES TO FIND WORDS OR MAKE SENSE. PT NPO UNTIL SPEECH EVAL, BUT DR JEAN OK'D PO MEDS ADMINISTERED IN APPLESAUCE. ASA NOT GIVEN IN ER. DR JEAN ORDERED ASA TO BE GIVEN IN APPLESAUCE; PT TOLERATED WELL. BELINDA FROM [facility] CALLED TO CHK ON PT; UPDATE GIVEN. IVF'S STARTED. BED ALARM ON FOR SAFETY. CALL LT IN REACH.
--- NOTE | 2019-09-18 19:00 | NUR ---
ASSUMED CARE RECEIVED REPORT FROM PRIYANK GUNTER. ASSUMED CARE OF PT. RESTING COMFORTABLY AT THIS TIME, NO S/S ACUTE DISTRESS NOTED. RESPS EVEN AND UNLABORED. PT IN KENY VEST AT THIS TIME, TOLERATING WELL. DENIES NEEDS AT THIS TIME. CALL LIGHT, POSSESSIONS IN REACH. WILL CONTINUE TO MONITOR.
[2019-09-19 05:34] LABS: Hematocrit 30.9 % (33.0-51.0); Hemoglobin 9.4 g/dL (11.5-16.0); Mean Corpuscular HGB Conc 30.4 g/dL (31.5-36.5); Mean Corpuscular Volume 89 fL (80-100); Mean Platelet Volume 8.9 fL (9.1-12.4); Platelet Count 298 K/mm3 (150-400); RDW Coefficient Variation 15.7 % (11.7-14.2); RDW Standard Deviation 50.3 fL (35.1-46.3); Red Blood Cell Count 3.48 M/mm3 (3.80-5.20); White Blood Cell Count 7.12 K/mm3 (4.00-11.30)
[2019-09-19 05:56] LABS: Anion Gap 7 mmol/L (6-16); Blood Urea Nitrogen 11 mg/dL (8-24); Bun/Creatinine Ratio 14.4 (12.0-20.0); CHOL/HDL RATIO 4.8; CO2, Blood 22 mmol/L (21-32); Calcium, Blood 8.6 mg/dL (8.5-10.1); Chloride, Blood 112 mmol/L (98-108); Cholesterol 183 mg/dL (50-200); Creatinine, Blood 0.76 mg/dL (0.40-1.00); Glomerular Filtration Rate >60 (60-); Glucose, Blood 81 mg/dL (70-99); HDL Cholesterol 38 mg/dL (>39); LDL/HDL RATIO 3.2; Low Density Lipoprotein Chol 120 mg/dL (0-110); Potassium, Blood 3.5 mmol/L (3.5-5.5); Sodium, Blood 141 mmol/L (136-145); Triglycerides 123 mg/dL (30-160); Very Low Density Lipoprot Chol 24 mg/dL (6-32)
--- NOTE | 2019-09-19 06:05 | NUR ---
SHIFT SUMMARY PT ASLEEP AT THIS TIME, NO S/S ACUTE DISTRESS NOTED, RESPS EVEN AND UNLABORED. NEURO STATUS REMAINS STABLE, PT CONTINUES ATTEMPTS TO VOCALIZE WORDS, SPEECH IMPROVING T/O NIGHT. LT SIDE REMAINS WEAK. PT ABLE TO STAND PIVOT TRANSFER TO BSC WITH ASSIST OF 2. CONFUSED AND AGITATED AT TIMES. RESTRAINTS REMAIN IN PLACE, PT TOLERATING WELL. MAKES NEEDS KNOWN APPROPRIATELY. CALL LIGHT, POSSESSIONS IN REACH, BED IN LOWEST POSITION WITH ALARM ON. WCTM UNTIL DAY RN ASSUMES CARE.
--- NOTE | 2019-09-19 15:39 | NUR ---
SHIFT SUMMARY PT AWAKE AT START OF SHIFT, VERY AGITATED AND CONFUSED, ATTEMPTING TO GET OOB. SPEECH TODAY HAS IMPROVED FURTHER FROM YESTERDAY. PT IS AWARE THAT "I USED TO TALK BETTER". PT IS ABLE TO COMMUNICATE MORE FULLY WHEN CALM, BUT WHEN SHE GETS FRUSTRATED OR UPSET, HER SPEECH IS GARBLED AND SHE CAN'T FIND THE WORDS SHE WANTS TO SAY. BL WRIST RESTRAINTS REMOVED AT START OF SHIFT. PT ASSISTED TO BSC TO VOID AND THEN BACK TO BED. PT CALMED SOME AND LEFT TELE MX ON AND IV SITE INTACT. AM MEDS GIVEN IN APPLESAUCE; PT TOLERATED WELL. PT THEN TOOK A SHORT NAP UNTIL P/T CAME TO WORK WITH HER. PT ASSISTED OOB AND ABLE TO AMBULATE IN AND OUT INTO LEUNG; 1P ASSIST USING GAITBELT AND FWW. PT ABLE TO TAKE ABOUT 3-4 NORMAL STEPS AND THEN STUMBLE SLIGHTLY WITH L LEG, DOING SO SEVERAL TIMES, WHILE WALKING TO LEUNG AND BACK; BEFORE REACHING THE CHAIR TO SIT DOWN. PT SAT UP TO CHAIR, IN THE SUN, LOOKING OUT WINDOW FOR A FEW MINUTES BEFORE BECOMING RESTLESS AND TRYING TO GET UP ON HER OWN. PT THEN ASSISTED BACK TO BED BEFORE DR JEAN HERE TO SEE HER. PT MORE ALERT TODAY WITH SPEECH MUCH MORE UNDERSTANDABLE. PT'S DIET CHANGED TO PUREE; PT TOLERATED VERY WELL, EATING ON HER OWN. ATTEMPTED TO REMOVE VEST RESTRAINT THIS AFTERNOON; UNSUCCESSFUL D/T PT'S IMPULSIVE BEHAVIOR AND FREQUENTLY REMOVING TELE MX LEADS. VEST RESTRAINT PLACED BACK ON. PT RESTING QUIETLY AT THIS TIME. BED ALARM ON FOR SAFETY. CALL LT IN REACH.
--- NOTE | 2019-09-19 19:00 | NUR ---
ASSUMED CARE RECEIVED REPORT FROM PRIYANK GUNTER. ASSUMED CARE OF PT. NO S/S ACUTE DISTRESS NOTED. KENY VEST IN PLACE, PT CALM AND COOPERATIVE AT THIS TIME. DENIES NEEDS. CALL LIGHT, POSSESSIONS IN REACH, BED IN LOWEST POSITION WITH ALARMS ON. WILL CONTINUE TO MONITOR PT CONDITION.
--- NOTE | 2019-09-19 20:08 | NUR ---
PHYSICIAN COMMUNICATION SPOKE TO CASI PRIETO REGARDING PT'S INCREASING BP'S. ORDERS RECEIVED. WILL CONTINUE TO MONITOR.
--- NOTE | 2019-09-19 21:00 | NUR ---
BEHAVIOR THIS RN ATTEMPTING TO REASSESS PT BP AFTER PRN HYDRALAZINE ADMINISTRATION. PT INCREASINGLY AGITATED, DEMANDING, STATING "GET OUT OF MY ROOM!" STRIKING STAFF. REFUSING TO ALLOW THIS RN AND PATIENT SVCS MGR TO OBTAIN VS FOLLOWING PRN ADMINISTRATION. WILL CONTINUE TO MONITOR PT VS PT ALLOWS.
--- NOTE | 2019-09-20 00:30 | NUR ---
BEHAVIOR THIS RN ENTERING PT ROOM TO FIND PT SITTING UP IN BED, KENY VEST IN PLACE. WHEN PT NOTED TO BE INCONTINENT OF URINE, RN ASKED IF SHE COULD HELP PT GET CLEANED UP, PT BECAME AGITATED, STATING "GET OUT OF MY ROOM" STRIKING THIS RN WITH HER FIST. RN REMINDING PT THAT STAFF IS HERE TO HELP HER. RN LEFT ROOM TO DE-ESCALATE PT AGITATION. RN RETURNED A FEW MINUTES LATER TO ASSIST PT, PT CONTINUES TO BE AGITATED, TELLING STAFF TO "GET OUT OF HER ROOM", BECOMING INCREASINGLY PHYSICALLY AGRESSIVE, CONTINUING TO STRIKE THIS RN. THIS RN BROUGHT ANOTHER NURSE INTO ROOM TO ASSIST IN KEEPING PT CALM. RESTRAINTS ADJUSTED. PT RESTING COMFORTABLY. REFUSING TO BE CLEANED UP AT THIS TIME. CALL LIGHT, POSSESSIONS IN REACH, BED IN LOWEST POSITION WITH ALARMS ON. WILL CONTINUE TO MONITOR PT BEHAVIOR.
--- NOTE | 2019-09-20 04:23 | NUR ---
SHIFT SUMMARY PT AT EASE, RESTING IN BED. TOLERATED VS THIS AM WITHOUT DIFFICULTY, BP'S STABLE. PT COOPERATIVE WITH CARES AT THIS TIME, NO FURTHER S/S AGITATION NOTED. AMBULATED TO BATHROOM WITH ASSIST OF 1 WITH FWW AND GB, TOLERATED WELL. KENY VEST REMAINS IN PLACE AT THIS TIME. DENIES NEEDS AT THIS TIME. CALL LIGHT, POSSESSIONS IN REACH, BED IN LOWEST POSITION WITH ALARMS ON. WILL CONTINUE TO MONITOR UNTIL DAY RN ASSUMES CARE.
--- NOTE | 2019-09-20 09:09 | NUR ---
ADVISED B.P. WAS HIGH THIS A.M. AND GAVE LOPRESSOR EARLY. NEW B.P 149/90. PER HOLD NEW ORDER OF LOPRESSOR.
--- NOTE | 2019-09-20 10:09 | NUR ---
PER NEEDS SPEECH EVAL AND TO EAT MECH/SOFT DIET FOR LUNCH BEFORE LEAVING.
[2019-09-20] MEDS ORDERED: ATOR20 PO (11:26)
[2019-09-20] MEDS ORDERED: METO25 PO (11:27)
[2019-09-20] MEDS ORDERED: ASPI81CH PO (11:27)
--- NOTE | 2019-09-20 11:36 | NUR ---
ATTEMPT TO CALL PRIYANK YOUNG TO GIVE REPORT. UNABLE TO TAKE REPORT AT THIS TIME. WILL CALL BACK LATER
--- NOTE | 2019-09-20 11:53 | NUR ---
REPORT TO HECTOR AT [facility]. ANSWER ALL QUESTIONS. ADVISED TRANSPORT NOT SET UP YET.
--- NOTE | 2019-09-20 14:25 | NUR ---
REVIEW D'C W/RN AT [facility]. ANSWER ALL QUESTIONS. PER Nga CRUZ'Chani ORDERS FAXED TO [facility]. HAVE D'C PACKET ALSO. PATIENT REFUSED AFTERNOON MEDS.
== END 2019-09-20 14:40 | disposition home or self-care (01) ==
LOC: ER 11:34 → MEDS 13:15 → ER 13:15 → MEDS 13:23 → ENPENDDIS 09-20 10:12 → MEDS 09-20 14:40
PROVIDERS: Emergency Medicine; ADMIT Internal Medicine
DX: R53.1 Weakness (principal); R29.810 Facial weakness; R47.9 Unspecified speech disturbances; F31.9 Bipolar disorder, unspecified; M19.90 Unspecified osteoarthritis, unspecified site; K21.9 Gastro-esophageal reflux disease without esophagitis; G30.9 Alzheimer's disease, unspecified; F02.81 Dementia in other diseases classified elsewhere, unspecified severity, with behavioral disturbance; E87.6 Hypokalemia; I71.4 Abdominal aortic aneurysm, without rupture; I35.0 Nonrheumatic aortic (valve) stenosis; I10 Essential (primary) hypertension; Z79.899 Other long term (current) drug therapy; Z79.82 Long term (current) use of aspirin; Z66 Do not resuscitate; Z88.0 Allergy status to penicillin; Z87.891 Personal history of nicotine dependence
CPT/HCPCS: 36415; 70450; 80048; 80053; 80061; 83036; 85025; 85027; 85610; 92610; 93005; 93010; 93306; 93880; 96374; 97116; 97162; 97166; 97535; 99285-25; A9270-GY; G0378; J0360; J1650; J3480